=== PATIENT | female | born 1995 | race Caucasian/White ===

== ENCOUNTER 2017-09-11 14:02 | Emergency (ER) | payer OTHER ==
[~2017-09-11] VITALS: Ht 160 cm; Wt 52.2 kg
[2017-09-11 14:44] VITALS: BP 125/57
== END 2017-09-11 14:44 | disposition home or self-care (01) ==
LOC: ED 14:02
DX: T75.89XA Other specified effects of external causes, initial encounter (principal); F17.210 Nicotine dependence, cigarettes, uncomplicated; F12.90 Cannabis use, unspecified, uncomplicated; Z71.6 Tobacco abuse counseling; Y04.8XXA Assault by other bodily force, initial encounter; Y93.89 Activity, other specified; Y99.8 Other external cause status; Y92.89 Other specified places as the place of occurrence of the external cause
CPT/HCPCS: 99406

== ENCOUNTER 2017-12-01 22:43 | Emergency (ER) | payer OTHER ==
[~2017-12-01] VITALS: Ht 162.6 cm; Wt 55.5 kg
[2017-12-01 22:53] VITALS: Ht 162.6 cm; Wt 55.5 kg
[2017-12-02 00:47] VITALS: BP 123/55
== END 2017-12-02 00:47 | disposition home or self-care (01) ==
LOC: ED 22:43
DX: L50.9 Urticaria, unspecified (principal); Z90.89 Acquired absence of other organs
CPT/HCPCS: J1200; J7512